=== PATIENT | female | born 1990 | race Caucasian/White ===

== ENCOUNTER 2017-09-25 16:09 | Emergency (ER) | payer SELFPAY ==
[2017-09-25 16:58] VITALS: BP 127/76
--- NOTE | 2017-09-25 18:26 | RAD ---
HISTORY: Left ring finger trauma COMPARISONS: None VIEWS: 3, Frontal, lateral, and oblique views of the left fourth digit FINDINGS: BONE DENSITY: Normal. BONES: There is an oblique nondisplaced fracture of the middle phalanx of the fourth digit JOINTS: There is no arthropathy. ALIGNMENT: There is no dislocation. SOFT TISSUES: Unremarkable. OTHER FINDINGS: None. IMPRESSION: OBLIQUE NONDISPLACED FRACTURE OF THE MIDDLE PHALANX OF THE FOURTH DIGIT.
--- NOTE | 2017-09-25 18:34 | UC ---
Hand/Wrist HPI - HPI Summary HPI Summary: FOUR DAYS AGO ACCIDENTLY SHUT LEFT RING FINGER IN A DOOR. SINCE THAT TIME HAS HAD CONTINUED PAIN BRUISING AND SWELLING. - History Of Current Complaint Chief Complaint: UCUpperExtremity Stated Complaint: LEFT RING FINGER INJURY Time Seen by Provider: 09/25/17 16:14 Hx Obtained From: Patient Hx Last Menstrual Period: 09/01/17, not sexually active Onset/Duration: Sudden Onset, Lasting Days, Still Present Severity Initially: Moderate Severity Currently: Moderate Character Of Pain: Dull, Aching Aggravating Factor(s): Movement, Flexion, Extension Alleviating Factor(s): Rest, Ice Associated Signs And Symptoms: Positive: Swelling, Bruising Related History: Dominant Hand Right - Allergies/Home Medications Allergies/Adverse Reactions: Allergies Allergy/AdvReac Type Severity Reaction Status Date / Time No Known Allergies Allergy Verified 09/25/17 16:35 Home Medications: Home Medications NK [No Home Medications Reported] 09/25/17 [History Confirmed 09/25/17] PMH/Surg Hx/FS Hx/Imm Hx Previously Healthy: Yes - Surgical History Surgical History: None - Family History Known Family History: Negative: Blood Disorder - Social History Occupation: Employed Full-time Lives: With Family Alcohol Use: Weekly Substance Use Type: None Smoking Status (MU): Heavy Every Day Tobacco Smoker Amount Used/How Often: 1/2 ppd Cessation Counseling: Patient Advised to Stop Review of Systems Constitutional: Negative Skin: Bruising Eyes: Negative ENT: Negative Respiratory: Negative Cardiovascular: Negative Gastrointestinal: Negative Genitourinary: Negative Motor: Negative Neurovascular: Negative Musculoskeletal: Arthralgia, Myalgia Neurological: Negative Psychological: Negative Is Patient Immunocompromised?: No All Other Systems Reviewed And Are Negative: Yes Physical Exam Triage Information Reviewed: Yes Vital Signs: Initial Vital Signs Temp 98.0 F 09/25/17 16:31 Pulse 62 09/25/17 16:31 Resp 14 09/25/17 16:31 BP 127/76 09/25/17 16:31 Pulse Ox 99 09/25/17 16:31 Eye Exam: Normal Eyes: Positive: Conjunctiva Clear ENT Exam: Normal ENT: Positive: Normal ENT inspection Dental Exam: Normal Neck exam: Normal Respiratory Exam: Normal Respiratory: Positive: Chest non-tender, Lungs clear, Normal breath sounds, No respiratory distress, No accessory muscle use Cardiovascular Exam: Normal Cardiovascular: Positive: RRR, No Murmur, Pulses Normal Abdominal Exam: Normal Musculoskeletal: Positive: Strength Limited @ - LEFT FOURTH FINGER, ROM Limited @ - LEFT FOURTH FINGER, Edema @ - LEFT FOURTH FINGER Neurological Exam: Normal Psychological Exam: Normal Skin Exam: Normal Procedures - Splinting Pre-Made Type: FINGER SPLINT; LEFT 4TH FINGER Pre-Proc Neuro Vasc Exam: normal Post-Proc Neuro Vasc Exam: normal Hand/Wrist Course/Dx - Differential Dx/Diagnosis Differential Diagnosis/HQI/PQRI: Fracture, Sprain, Strain Provider Diagnoses: CLOSED NONDISPLACED OBLIQUE FRACTURE OF LEFT FOURTH FINGER MIDDLE PHALANX Discharge - Discharge Plan Condition: Stable Disposition: HOME Patient Education Materials: Finger Fracture (ED) Forms: *Work Release Referrals: Aguila Vora MD [Medical Doctor] - Petra Goodwin MD [Primary Care Provider] - Shiela Saeed MD [Medical Doctor] -
== END 2017-09-25 18:34 | disposition home or self-care (01) ==
LOC: UCCORT 16:09
DX: S62.603A Fracture of unspecified phalanx of left middle finger, initial encounter for closed fracture (principal); F17.210 Nicotine dependence, cigarettes, uncomplicated; W23.0XXA Caught, crushed, jammed, or pinched between moving objects, initial encounter; Y93.9 Activity, unspecified; Y92.9 Unspecified place or not applicable; Z71.6 Tobacco abuse counseling
CPT/HCPCS: 73140; 99202; G0463

== ENCOUNTER 2018-07-20 13:34 | Emergency (ER) | payer SELFPAY ==
[2018-07-20 13:46] VITALS: BP 119/70
--- NOTE | 2018-07-20 13:58 | UC ---
Complaint Female HPI - HPI Summary HPI Summary: Forgot she had a tampon in and had sex now she cannot reach the tampon-- - History Of Current Complaint Chief Complaint: UCGeneralIllness Stated Complaint: PERSONAL Time Seen by Provider: 07/20/18 13:47 Hx Obtained From: Patient Hx Last Menstrual Period: 07/19/18 ?: No Onset/Duration: Sudden Onset, Lasting Days - 1, Still Present Timing: Constant Pain Intensity: 0 Pain Scale Used: 0-10 Numeric - Allergies/Home Medications Allergies/Adverse Reactions: Allergies Allergy/AdvReac Type Severity Reaction Status Date / Time No Known Allergies Allergy Verified 09/25/17 16:35 PMH/Surg Hx/FS Hx/Imm Hx Previously Healthy: Yes - Surgical History Surgical History: None - Family History Known Family History: Negative: Blood Disorder - Social History Occupation: Employed Full-time Lives: With Family Alcohol Use: Weekly Substance Use Type: None Smoking Status (MU): Heavy Every Day Tobacco Smoker Amount Used/How Often: 1/2 ppd Review of Systems Constitutional: Negative Skin: Negative Eyes: Negative ENT: Negative Respiratory: Negative Cardiovascular: Negative Gastrointestinal: Negative Genitourinary: Negative Motor: Negative Neurovascular: Negative Musculoskeletal: Negative Neurological: Negative Psychological: Negative Is Patient Immunocompromised?: No All Other Systems Reviewed And Are Negative: Yes Physical Exam Triage Information Reviewed: Yes Appearance: Well-Appearing, No Pain Distress, Well-Nourished Vital Signs: Initial Vital Signs Temp 98.2 F 07/20/18 13:42 Pulse 91 07/20/18 13:42 Resp 14 07/20/18 13:42 BP 119/70 07/20/18 13:42 Pulse Ox 100 07/20/18 13:42 Vital Signs Reviewed: Yes Eye Exam: Normal Eyes: Positive: Conjunctiva Clear ENT Exam: Normal ENT: Positive: Normal ENT inspection, Hearing grossly normal. Negative: Trismus , Muffled voice, Hoarse voice Dental Exam: Normal Neck exam: Normal Neck: Positive: Supple, Nontender Respiratory Exam: Normal Respiratory: Positive: Chest non-tender, No respiratory distress, No accessory muscle use Cardiovascular Exam: Normal Cardiovascular: Positive: RRR, Pulses Normal, Brisk Capillary Refill Abdominal Exam: Normal Abdomen Description: Positive: Nontender, Soft Pelvic Exam: Positive: External Exam Normal, Speculum Exam Normal, No Cerv. Motion Tender, Blood - menses, Other - tampon removed -. Negative: Tender Adnexa Musculoskeletal Exam: Normal Musculoskeletal: Positive: Strength Intact, ROM Intact Neurological Exam: Normal Neurological: Positive: Alert, Muscle Tone Normal Psychological Exam: Normal Skin Exam: Normal Complaint Female Dx - Course Course Of Treatment: tampon removed, follow with pcp - Differential Dx/Diagnosis Provider Diagnoses: FB removed from vagina Discharge - Sign-Out/Discharge Documenting (check all that apply): Patient Departure All imaging exams completed and their final reports reviewed: No Studies - Discharge Plan Condition: Stable Disposition: HOME Patient Education Materials: Vaginal Foreign Body (ED) Referrals: Petra Goodwin MD [Primary Care Provider] - If Needed - Billing Disposition and Condition Condition: STABLE Disposition: Home
== END 2018-07-20 14:05 | disposition home or self-care (01) ==
LOC: UCCORT 13:34
DX: T19.2XXA Foreign body in vulva and vagina, initial encounter (principal); F17.200 Nicotine dependence, unspecified, uncomplicated
CPT/HCPCS: 99212; G0463

== ENCOUNTER 2018-08-13 11:44 | Emergency (ER) | payer BC | END 2018-08-13 12:55 | disposition home or self-care (01) | LOC: UCCORT 11:44 | DX: M25.512 Pain in left shoulder (principal); M54.12 Radiculopathy, cervical region | CPT/HCPCS: 93005; 99212; G0463 ==